=== PATIENT | female | born 1955 | race Caucasian/White ===

== ENCOUNTER → 2016-11-14 | Outpatient (CLI) | payer BC, MEDICARE ==
[~2016-11-14] MED LIST: ADRENOID CAPSU1 EACH PO; APRESOLINE PO; ASPIRIN81 M1 PO; ASPIRIN81 M2 PO; BENTYL10 M1 PO; CRESTOR PO; CYMBALTA30 MG PO; DIOVAN PO; DIOVAN80 M1 PO; FLEXERIL10 M1 PO; LASIX PO; LEXAPRO PO; LYRICA PO; MELATONIN3 M1 PO; METHADOSE5 MG PO; METOPROLOL TAR25 MG PO; NEXIUM PO; NORVASC; NORVASC PO; NOVOLOG100 U/ML SUBQ; OMEPRAZOLE20 M1 PO; PERCOCET5/325 PO; PHENERGAN PO; PHENERGAN25 M1 PO; PLAVIX PO; TEMAZEPAM PO; VITAMIN D31000 UNIT PO; VITAMIN D50000 UNIT PO; VOLTAREN75 MG PO; ZETIA PO; ZOFRAN ODT4 MG PO
[2016-11-14 12:08] LABS: BUN/CREATININE RATIO 12.92; CALCIUM SERUM 8.9 mg/dL (8.4-10.2); CREATININE SERUM 6.5 mg/dL (0.6-1.4); GLOM FILT RATE Estimated 6.9 mL/min (>60); POTASSIUM 5.1 mmol/L (3.5-5.1)
== END | disposition home or self-care (01) ==
LOC: SLABONLY 11:23
PROVIDERS: Internal Medicine Nephrology
DX: N18.5 Chronic kidney disease, stage 5 (principal)
CPT/HCPCS: 36415; 80048